=== PATIENT | female | born 1970 | race Caucasian/White ===

== ENCOUNTER 2017-01-01 15:50 | Emergency (ER) | payer MEDICAID ==
[2017-02-10] MEDS ORDERED: CARDIZEM60 MG PO (12:19)
[2017-02-10] MEDS ORDERED: NEURONTIN 300300 MG PO (12:19)
[2017-02-10] MEDS ORDERED: FENOFIBRATE160 MG PO (12:20)
[2017-02-10] MEDS ORDERED: VOLTAREN75 MG PO (12:20)
[2017-02-10] MEDS ORDERED: BUPROPION XL150 MG PO (12:20)
[2017-02-10] MEDS ORDERED: LEXAPRO20 MG PO (12:21)
[2017-02-11 06:47] VITALS: BMI 37.8
== END 2017-01-01 18:42 | disposition home or self-care (01) ==
LOC: D.ER 15:50
DX: S82.892A Other fracture of left lower leg, initial encounter for closed fracture (principal); X58.XXXA Exposure to other specified factors, initial encounter; Y93.89 Activity, other specified; Y92.029 Unspecified place in mobile home as the place of occurrence of the external cause; I10 Essential (primary) hypertension

== ENCOUNTER 2017-01-18 12:06 | Emergency (ER) | payer MEDICAID ==
[2017-02-10] MEDS ORDERED: CARDIZEM60 MG PO (12:19)
[2017-02-10] MEDS ORDERED: NEURONTIN 300300 MG PO (12:19)
[2017-02-10] MEDS ORDERED: BUPROPION XL150 MG PO (12:20)
[2017-02-10] MEDS ORDERED: FENOFIBRATE160 MG PO (12:20)
[2017-02-10] MEDS ORDERED: VOLTAREN75 MG PO (12:20)
[2017-02-10] MEDS ORDERED: LEXAPRO20 MG PO (12:21)
[2017-02-11 06:47] VITALS: BMI 37.8
== END 2017-01-18 13:00 | disposition home or self-care (01) ==
LOC: D.ER 12:06
DX: S82.892A Other fracture of left lower leg, initial encounter for closed fracture (principal); X58.XXXA Exposure to other specified factors, initial encounter; Y93.89 Activity, other specified; Y92.029 Unspecified place in mobile home as the place of occurrence of the external cause; M25.572 Pain in left ankle and joints of left foot; G62.9 Polyneuropathy, unspecified; I10 Essential (primary) hypertension

== ENCOUNTER 2017-02-11 06:15 | Day surgery (SDC) | payer MEDICAID ==
[2017-02-10 13:00] LABS: HEMATOCRIT 36.7 % (36.0-48.0); HEMOGLOBIN 12.1 g/dL (12-16); MCH 31.2 pg (26.0-34.0); MCV 94.6 fL (80.0-100.0); MEAN PLATELET VOLUME 9.7 fL (7.4-10.4); RBC 3.88 10x6/uL (4.00-5.40); RDW 13.1 % (11.5-14.5); WBC 15.6 10x3/uL (4.8-10.8)
[~2017-02-11] VITALS: Ht 154.9 cm; Wt 90.7 kg
[~2017-02-11 06:15] MED LIST: BUPROPION XL150 MG PO; CARDIZEM60 MG PO; FENOFIBRATE160 MG PO; LEXAPRO20 MG PO; NEURONTIN 300300 MG PO; VOLTAREN75 MG PO
[2017-02-11] MEDS ORDERED: PROTONIX40 MG PO (06:43)
[2017-02-11 06:47] VITALS: BP 144/75; Ht 154.9 cm; Wt 90.7 kg
--- NOTE | 2017-02-18 09:32 | OP ---
PATIENT NAME: KIKE GIRON MEDICAL RECORD: [id number] :72 LOCATION:[facility] ADMISSION DATE: SURGEON: YODIT YUSUF DPM DATE OF OPERATION: 02/11/2017 PREOPERATIVE DIAGNOSES: 1. Left ankle capsulitis and impinging synovitis. 2. Rupture of lateral ligaments, left ankle. 3. Fracture of left posterior malleolus of the tibia. POSTOPERATIVE DIAGNOSES: 1. Left ankle capsulitis and impinging synovitis. 2. Rupture of lateral ligaments, left ankle. 3. Fracture of left posterior malleolus of the tibia. ANESTHESIA: Preoperative popliteal block per the anesthesia department as well as intraoperative general anesthesia as well as infiltration of 1:1 mix of lidocaine and Marcaine plain approximately 20 cc around the surgical site approximately 1 hour into the case. HEMOSTASIS: Left thigh tourniquet at 350 mmHg. PREOPERATIVE DETAILS: The patient was taken to the OR, placed on the operating table in a supine position. This was followed by induction of general anesthesia. The left extremity was then prepped and draped in usual aseptic technique, followed by exsanguination of extremity and inflation of tourniquet. DESCRIPTION OF PROCEDURE: Left ankle arthroscopy: A 15-blade was used to create a small stab incision over the anterolateral shoulder of the left ankle. The incision was deepened down bluntly through the subcutaneous tissue and the joint was acquired with a trocar and cannula. The camera was introduced. The initial inspection showed significant capsulitis as well as impinging synovitis of the joint. The anterior-inferior tibiofibular ligament was also impinging on the lateral shoulder. A small stab incision was made over the anterior medial shoulder of the ankle, bluntly dissected down to the capsule which was punctured and the synovial shaver was introduced in the medial portal. It was then used to provide extensive debridement and all the synovitic and capsular hypertrophy tissue. The camera that was introduced in the lateral side was then used to visualize the ATF, which appeared inflamed and not healthy. At this time, we also placed the foot in maximum inversion, which showed no tilt of the talus indicating that the CF ligament was intact. The ports were then switched with the camera being introduced medially and the synovial shaver laterally and continued extensive debridement was performed. Once adequate debridement was performed, the camera and synovial shaver were removed. ATF repair, left ankle: A 15 blade was used to create a pocket J-shaped incision over the lateral aspect of the left ankle along the coursing of the anterior fibula. The incision was deepened down through subcutaneous tissue being sure to avoid all vital structures. The lateral ankle joint was then visualized and a 15-blade was used to make a lateral capsular incision through the joint capsule as well as through the ATF. The distal anterior fibula and the lateral aspect of the talus for the ATF insertion were then prepped for the internal brace. The internal brace was then placed in a standard technique giving excellent fixation and range of motion of the joint. At this time, utilizing the extensor retinaculum as well as what was left of the ATF ligament, OPERATIVE REPORT [id number] KIKE GIRON reinforced galen Ferraro was performed augmenting the repair. The wound was flushed. The rest of the joint capsule was then repaired with 2-0 Vicryl. The subcutaneous tissue was reapproximated with 4-0 Rapide, and the skin was closed with 4-0 Rapide in a subcuticular technique followed by Dermabond. The incisions for the scope were then closed with simple interrupted suture as well as application of Dermabond. ORIF of left posterior malleolar fracture: A 15-blade was used to create a 4-cm linear incision over the posterior lateral aspect of the left ankle. The incision was deepened down through subcutaneous tissue being sure to avoid all vital structures. Dissection was carried down to the posterior aspect of the left ankle. The posterior malleolus was then visualized. The peroneal tendons were retracted in the wound. Once visualization was achieved, C-arm was used to locate the fragment and verify the fragment. Wire was placed through the fragment into the distal tibia, followed by overdrill being sure to obviously protect the structures, posterior aspect of the ankle. The overdrill was performed. It was measured and required a 32-mm 4.0 screw, which was placed under fluoroscopy guide noting excellent internal fixation as well as reapproximation of the fragment and stabilization of the fragment. The wound was then flushed. The deep tissue was reapproximated with 2-0 Vicryl, the subcutaneous tissue with 4-0 Rapide, and the skin was closed with skin go. Adaptic, 4 x 4, and Conform were used to dress the wound, followed by application of a modified Gray compression dressing. The tourniquet was deflated. POSTOPERATIVE DETAILS: The patient tolerated the procedure well and left the OR with vital signs stable and vascular status at preoperative levels. The patient was transported to recovery per anesthesia in stable condition. 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
== END 2017-02-11 13:20 | disposition home or self-care (01) ==
LOC: D.OPS 06:15 → D.PAN 08:15 → D.OPS 10:45
PROVIDERS: Anesthesiology
DX: M77.52 Other enthesopathy of left foot and ankle (principal); M65.872 Other synovitis and tenosynovitis, left ankle and foot; S82.52XA Displaced fracture of medial malleolus of left tibia, initial encounter for closed fracture; X58.XXXA Exposure to other specified factors, initial encounter